=== PATIENT | male | born 1985 | race Caucasian/White ===

== ENCOUNTER 2017-08-14 23:11 | Emergency (ER) | payer SELFPAY ==
[~2017-08-14 23:11] MED LIST: Propofol 200 MG/20 ML SDV ONE; Rocuronium 50 MG/5 ML Vial ONE; Succinylcholine 200 MG/10 ML MDV ONE
[2017-08-14] MEDS ORDERED: Ondansetron 4 MG/2 ML SDV IVPUSH ONE (23:28)
[2017-08-14] MEDS ORDERED: Sodium Chloride 0.9% 1,000 ML IV SCH (23:30)
--- NOTE | 2017-08-14 23:41 | EDM.PDOC ---
ED HPI GENERAL MEDICAL PROBLEM - General Chief Complaint: Drug or Alcohol Abuse Stated Complaint: [facility] Time Seen by Provider: 08/14/17 23:12 Source of Information: Reports: EMS, Police History Limitations: Reports: Altered Mental Status - History of Present Illness INITIAL COMMENTS - FREE TEXT/NARRATIVE: This is a 31-year-old male. Apparently he was talking to his and family in [place] stating that he was depressed and they lost contact with him but were able to find him by locating his Ipad. When the arrived he was parked on the side of a road near [place] and he was unresponsive. The ambulance arrived and he was still unresponsive they did give him some Narcan because his respiratory rate was low but it didn't seem to help so they bagged the patient and he started breathing more normally so they put him on oxygen and transported him to the emergency room. When he arrived he semi-responsive. He has minimal response to verbal stimuli by muttering and he is essentially lethargic and sleeping. When the arrived she had talked to the family and they indicate that he has a long history of depression and possibly a history of overdosing. He has a whole bag of medications. His medications include Subutex 8 mg it looks like he is only taking half of a tablet from the prescription that he got on 08/13/2017, trazodone which he got filled on 08/10/2017 and 8 tablets are gone he is on several other medications including injectable testosterone and anabolic steroids as well as a anti- estrogen, Anastrozole. He is also on Brexpiprazole for depression. Finasteride for BPH. Gabapentin. He also has various supplements for body building that I' m not able to identify. We were able to identify Celebrex as well as minocycline capsules. We're assuming at this time that he took an overdose of medications as well as drinking alcohol. We are not certain whether this is a suicide gesture or attempt or just an accidental overdose. The patient is not able to add to this history. I spoke to Rekha his in [place] and she indicates he has been committed at least 2 times this month for suicidal ideation. The most recent he took muscle relaxers and alcohol as an overdose. She states he was released one week ago from the hospital and his psych doctor placed him on 3 new medications to try to stabilize his crisis. She does not know the name of the medications. When she was talking to him this evening he said to her that he wanted to and then apparently took the overdose of medications. That was when she called the police and they tracked him to his vehicle where he was found to be unresponsive. The ambulance stated that when they arrived he was found on the passenger side of the vehicle with cans of beer and he was breathing 4 times a minute and the ambulance bagged the patient and gave him 2 mg of Narcan IV with no response his pupils were pinpoint and slow to react when he arrived to the ER he is still obtunded and does not respond to verbal stimuli and he drifts off to sleep. He is maintaining his airway without difficulty. He's had no nausea and vomiting or gagging. 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: Reports: Other (see below) Other 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: narcan - Related Data Allergies Allergy/AdvReac Type Severity Reaction Status Date / Time Unable to Assess Allergy Unverified 08/14/17 23:26 Home Meds: Home Meds Anastrozole [Arimidex] 1 mg PO ASDIRECTED 08/15/17 [History] Brexpiprazole [Rexulti] 1 mg PO 08/15/17 [History] Buprenorphine HCl [Buprenorphine] 4 mg SL TID 08/15/17 [History] Finasteride 5 mg PO DAILY 08/15/17 [History] Testosterone Cypionate [Testone Cik] 250 mg IM 08/15/17 [History] traZODone HCl [Trazodone HCl] 50 mg PO BEDTIME PRN 08/15/17 [History] Past Medical History Other HEENT History: unable to verify past medical history at this time due to pt not verbally responding Social & Family History - Tobacco Use Smoking Status *Q: Unknown Ever Smoked - Recreational Drug Use Other Recreational Drug Type: unsure of any strret drug use ED ROS GENERAL - Review of Systems Review Of Systems: Unable To Obtain (The patient is verbally unresponsive at this time) - Physical Exam Exam: See Below Exam Limited By: Altered Mental Status General Appearance: Lethargic, Obtunded, Other (GCS is 3 at this time.) Eye Exam: Bilateral Eye: Normal Inspection, PERRL (Mild pin point pupils) Ears: Normal External Exam Nose: Normal Inspection Throat/Mouth: Normal Lips, No Airway Compromise Head Exam: Normocephalic Neck: Normal Inspection Respiratory/Chest: No Respiratory Distress, Lungs Clear, Normal Breath Sounds Cardiovascular: Regular Rate, Rhythm, No Murmur GI/Abdominal: Soft, Other (Patient does not arouse with palpation of his abdomen ) Neuro Exam (Abbreviated): Confused, Slow to Respond, Unresponsive Back Exam: Normal Inspection Extremities: Normal Inspection, Other (There is no evidence of any track arguello on his arms legs or toes or feet.) Psychiatric: Other (Essentially unresponsive though will respond to verbal stimuli) Skin Exam: Warm, Dry Course - Vital Signs Last Recorded V/S: Last Vital Signs Temp 98.1 F 08/14/17 23:18 Pulse 100 08/14/17 23:18 Resp 19 08/14/17 23:18 BP 109/63 08/14/17 23:18 Pulse Ox 95 08/14/17 23:18 - Orders/Labs/Meds Orders: Active Orders 24 hr Category Date Time Status EKG 12 Lead [EKG Documentation Completion] [RC] STAT Care 08/15/17 00:11 Active RT Ventilator, Adult [RC] ASDIRECTED Care 08/15/17 01:35 Active Chest 1V-Tube Placement Chk NC [CR] Stat Exams 08/15/17 01:38 Taken DRUG SCREEN, URINE [URCHEM] Stat Lab 08/15/17 00:10 Ordered Desired Level of Sedation (RASS) [AST] CONTINUOUS Oth 08/15/17 01:42 Ordered Labs: Laboratory Tests 08/14/17 08/14/17 08/14/17 Range/Units 23:40 23:40 23:40 WBC 8.64 (4.23-9.07) K/mm3 RBC 5.55 (4.63-6.08) M/mm3 Hgb 16.5 (13.7-17.5) gm/L Hct 49.9 (40.1-51.0) % MCV 89.9 (79.0-92.2) fl MCH 29.7 (25.7-32.2) pg MCHC 33.1 (32.2-35.5) g/dl RDW Std Deviation 44.7 H (35.1-43.9) fL Plt Count 262 (163-337) K/mm3 MPV 8.7 L (9.4-12.3) fl Neut % (Auto) 69.2 H (34.0-67.9) % Lymph % (Auto) 26.2 (21.8-53.1) % Bartholomew % (Auto) 3.6 L (5.3-12.2) % Eos % (Auto) 0.6 L (0.8-7.0) Baso % (Auto) 0.2 (0.1-1.2) % Neut # (Auto) 5.98 H (1.78-5.38) K/mm3 Lymph # (Auto) 2.26 (1.32-3.57) K/mm3 Bartholomew # (Auto) 0.31 (0.30-0.82) K/mm3 Eos # (Auto) 0.05 (0.04-0.54) K/mm3 Baso # (Auto) 0.02 (0.01-0.08) K/mm3 Puncture Site ABG pH (7.35-7.45) ABG pCO2 (35.0-45.0) mmHg ABG pO2 (80.0-100.0) mmHg ABG HCO3 (22.0-26.0) meq/L ABG O2 Saturation (96.0-97.0) % ABG Base Excess (-2-2.0) A-a Gradient mmHg O2 Delivery Device FiO2 (21.00-100.00) % Tidal Volume cc PEEP cmH20 Sodium 140 (136-145) mEq/L Potassium 3.9 (3.5-5.1) mEq/L Chloride 104 (98-107) mEq/L Carbon Dioxide 27 (21-32) mEq/L Anion Gap 12.9 (5-15) BUN 16 (7-18) mg/dL Creatinine 1.2 (0.7-1.3) mg/dL Est Cr Clr Drug Dosing 87.88 mL/min Estimated GFR (MDRD) > 60 (>60) mL/min BUN/Creatinine Ratio 13.3 L (14-18) Glucose 118 H (74-106) mg/dL Calcium 8.2 L (8.5-10.1) mg/dL Total Bilirubin 0.2 (0.2-1.0) mg/dL AST 27 (15-37) U/L ALT 52 (16-63) U/L Alkaline Phosphatase 51 (46-116) U/L Total Protein 7.1 (6.4-8.2) g/dl Albumin 4.0 (3.4-5.0) g/dl Globulin 3.1 gm/dL Albumin/Globulin Ratio 1.3 (1-2) Salicylates 0.7 L (2.8-20) mg/dL Urine Opiates Screen (NEGATIVE) Ur Buprenorphine Scrn (NEGATIVE) Ur Oxycodone Screen (NEGATIVE) Urine Methadone Screen (NEGATIVE) Ur Propoxyphene Screen (NEGATIVE) Acetaminophen 0 L (10-30) ug/mL Ur Barbiturates Screen (NEGATIVE) Ur Tricyclics Screen (NEGATIVE) Ur Phencyclidine Scrn (NEGATIVE) Ur Amphetamine Screen (NEGATIVE) U Methamphetamines Scrn (NEGATIVE) U Benzodiazepines Scrn (NEGATIVE) U Cocaine Metab Screen (NEGATIVE) U Marijuana (THC) Screen (NEGATIVE) Ethyl Alcohol 0.21 (0.00) gm% 08/15/17 08/15/17 Range/Units 00:10 02:10 WBC (4.23-9.07) K/mm3 RBC (4.63-6.08) M/mm3 Hgb (13.7-17.5) gm/L Hct (40.1-51.0) % MCV (79.0-92.2) fl MCH (25.7-32.2) pg MCHC (32.2-35.5) g/dl RDW Std Deviation (35.1-43.9) fL Plt Count (163-337) K/mm3 MPV (9.4-12.3) fl Neut % (Auto) (34.0-67.9) % Lymph % (Auto) (21.8-53.1) % Bartholomew % (Auto) (5.3-12.2) % Eos % (Auto) (0.8-7.0) Baso % (Auto) (0.1-1.2) % Neut # (Auto) (1.78-5.38) K/mm3 Lymph # (Auto) (1.32-3.57) K/mm3 Bartholomew # (Auto) (0.30-0.82) K/mm3 Eos # (Auto) (0.04-0.54) K/mm3 Baso # (Auto) (0.01-0.08) K/mm3 Puncture Site Rt brachial ABG pH 7.29 L (7.35-7.45) ABG pCO2 47.1 H (35.0-45.0) mmHg ABG pO2 125.0 H (80.0-100.0) mmHg ABG HCO3 21.9 L (22.0-26.0) meq/L ABG O2 Saturation 98.3 H (96.0-97.0) % ABG Base Excess -4.6 L (-2-2.0) A-a Gradient 72 mmHg O2 Delivery Device Ventilator FiO2 40.00 (21.00-100.00) % Tidal Volume 500.0 cc PEEP 5.0 cmH20 Sodium (136-145) mEq/L Potassium (3.5-5.1) mEq/L Chloride (98-107) mEq/L Carbon Dioxide (21-32) mEq/L Anion Gap (5-15) BUN (7-18) mg/dL Creatinine (0.7-1.3) mg/dL Est Cr Clr Drug Dosing mL/min Estimated GFR (MDRD) (>60) mL/min BUN/Creatinine Ratio (14-18) Glucose (74-106) mg/dL Calcium (8.5-10.1) mg/dL Total Bilirubin (0.2-1.0) mg/dL AST (15-37) U/L ALT (16-63) U/L Alkaline Phosphatase (46-116) U/L Total Protein (6.4-8.2) g/dl Albumin (3.4-5.0) g/dl Globulin gm/dL Albumin/Globulin Ratio (1-2) Salicylates (2.8-20) mg/dL Urine Opiates Screen Negative (NEGATIVE) Ur Buprenorphine Scrn Presumptive positive H (NEGATIVE) Ur Oxycodone Screen Negative (NEGATIVE) Urine Methadone Screen Negative (NEGATIVE) Ur Propoxyphene Screen Negative (NEGATIVE) Acetaminophen (10-30) ug/mL Ur Barbiturates Screen Negative (NEGATIVE) Ur Tricyclics Screen Negative (NEGATIVE) Ur Phencyclidine Scrn Negative (NEGATIVE) Ur Amphetamine Screen Negative (NEGATIVE) U Methamphetamines Scrn Negative (NEGATIVE) U Benzodiazepines Scrn Negative (NEGATIVE) U Cocaine Metab Screen Negative (NEGATIVE) U Marijuana (THC) Screen Negative (NEGATIVE) Ethyl Alcohol (0.00) gm% Meds: Medications Discontinued Medications Generic Name Dose Route Start Last Admin Trade Name Freq PRN Reason Stop Dose Admin Sodium Chloride 1,000 mls @ 1,000 mls/hr 08/14/17 23:30 08/14/17 23:38 Normal Saline IV 1,000 mls/hr ASDIRECTED DEBO Administration Sodium Chloride 1,000 mls @ 500 mls/hr 08/15/17 00:41 08/15/17 00:46 Normal Saline IV 08/15/17 02:40 500 mls/hr .BOLUS ONE Administration Propofol Confirm 08/15/17 01:29 08/15/17 01:53 Diprivan 100 Ml Administered 08/15/17 01:30 Not Given Dose 100 mls @ as directed .ROUTE .STK-MED ONE Propofol 100 mls @ 2.994 mls/hr 08/15/17 01:45 08/15/17 01:45 Diprivan 100 Ml IV 20 mcg/kg/min TITRATE DEBO 11.975 mls/hr Administration Protocol 5 MCG/KG/MIN Ondansetron HCl 4 mg 08/14/17 23:28 08/14/17 23:39 Zofran IVPUSH 08/14/17 23:29 4 mg ONETIME ONE Administration - Re-Assessments/Exams Free Text/Narrative Re-Assessment/Exam: 08/15/17 01:09 Reassessment of the patient he appears to be more obtunded and he does not respond to verbal stimuli or sternal rub even a severe sternal rub. This time his GCS is 3 and I do not feel comfortable with this patient and his gag reflex. Therefore we will go ahead and intubate this patient and placed him on a ventilator until he can awaken enough to maintain his gag reflex and protect his airway adequately. 08/15/17 01:[address] Bocanegra at [facility] in [place] regarding the patient's history and status and intubation. He agrees to accept the patient in transport for further evaluation and treatment and will make him a direct admit to the ICU. I also cold the patient's in [place], Rekha, her phone number is , informing her of her 's condition and the intubation to protect his airway as well as the transfer of the patient to [facility] in [place]. She understands the situation. Once the patient was intubated with an 8.0 tube by the on-call MARBLE WORKER he was placed on a ventilator with a 500 mL tidal volume people 5 respiratory rate of 12 and FiO2 of 40%. His pulse ox is maintained at 98-100%. He is on a propofol drip at 20 mics per kilogram per minute. He has no NG tube at intermittent suction as well as a Mercado catheter was placed. The ambulance was called for the patient's transfer down to [facility] in [place]. 08/15/17 02:14 With suctioning the patient became somewhat restless. We provided rocuronium 100 mg IV and increased the propofol drip to 30 mcg/kg/m. 08/15/17 02:20 The ambulance services arrived to the ER to take the patient to [facility] for admission and further evaluation and treatment. 08/15/17 02:26 Blood gas showed a pH is 7.29 with a CO2 of 47 so we increased the rate from 12/ m to 14/m. The rest of the blood gas was appropriate. Departure - Departure Time of Disposition: 02:45 Disposition: DC/Tfer to Acute Hospital 02 Condition: Fair Clinical Impression: Suicidal ideation, Suicide attempt, Required emergent intubation, Airway intubation performed without difficulty Multiple drug overdose Qualifiers: Encounter type: initial encounter Injury intent: intentional self-harm Qualified Code(s): T50.902A - Poisoning by unspecified drugs, medicaments and biological substances, intentional self-harm, initial encounter Acute alcohol intoxication Qualifiers: Complication of substance-induced condition: uncomplicated Qualified Code(s): F10.929 - Alcohol use, unspecified with intoxication, unspecified Depression, major Qualifiers: Major depression recurrence: recurrent Active/Remission status: currently active Major depression episode severity: severe Psychotic features: without psychotic features Qualified Code(s): F33.2 - Major depressive disorder, recurrent severe without psychotic features - Discharge Information Referrals: PCP,Not In Area [Primary Care Provider] - Forms: ED Department Discharge Additional Instructions: Dr. Bocanegra at [facility] agrees to accept the patient in transfer as a direct admit to the ICU for further evaluation and treatment. ED Communication - ED Communication Date/Time Date: 08/15/17 Time Called: 01:35 - Discussed Case With (1) Discussed Case With (1): Admitting Provider Person/s Notified (1): Dr. Bocanegra (He agrees to accept the patient in transport) - My Orders Last 24 Hours: My Active Orders 08/15/17 00:10 DRUG SCREEN, URINE [URCHEM] Stat 08/15/17 00:11 EKG 12 Lead [EKG Documentation Completion] [RC] STAT 08/15/17 01:35 RT Ventilator, Adult [RC] ASDIRECTED 08/15/17 01:38 Chest 1V-Tube Placement Chk NC [CR] Stat 08/15/17 01:42 Desired Level of Sedation (RASS) [AST] CONTINUOUS - Assessment/Plan Last 24 Hours: My Active Orders 08/15/17 00:10 DRUG SCREEN, URINE [URCHEM] Stat 08/15/17 00:11 EKG 12 Lead [EKG Documentation Completion] [RC] STAT 08/15/17 01:35 RT Ventilator, Adult [RC] ASDIRECTED 08/15/17 01:38 Chest 1V-Tube Placement Chk NC [CR] Stat 08/15/17 01:42 Desired Level of Sedation (RASS) [AST] CONTINUOUS
[2017-08-15 00:16] LABS: ACETAMINOPHEN 0 ug/mL (10-30)
[2017-08-15] MEDS ORDERED: Sodium Chloride 0.9% 1,000 ML IV ONE (00:41)
--- NOTE | 2017-08-15 01:52 | PCM.SN ---
- Free Text/Narrative Note: 08/15/17 [id number] Was called to ER to intubate this 31 year old male. Patient in Trauma 2. Breathing spontaneously, but unresponsive. Preoxygenated with 100 % O2 via ambu. Sat 100% Vitals stable. Succinylcholine 100 mg IV given followed by a flush along with cricoid pressure. Intubated with 3.0 MAC- 8.0 ETT. Secured by RT Erum. Positive color change and equal and bilateral breath sounds on auscultation. Ambu 100% O2 until on vent per Erum RT. Chest Xray read per Dr. Ortega NG passed to 65 without difficulty and had brownish liquid returns. Secured by nurse. Vitals stable. Cy
--- NOTE | 2017-08-17 08:23 | CR ---
Chest: Portable view of the chest was obtained. Comparison: No prior exam. Tip of endotracheal tube lies at the level of the clavicles. Nasogastric tube lies within the stomach fundus. Slight areas of atelectasis are seen within the right lung base. Lungs otherwise are clear. Bony structures are grossly intact. Impression: 1. Satisfactory position of nasogastric tube and endotracheal tube. 2. Mild right basilar atelectasis. Diagnostic code #3
== END 2017-08-15 02:48 ==
LOC: JD.ED 23:11
DX: T40.4X2A Poisoning by other synthetic narcotics, intentional self-harm, initial encounter (principal); T43.212A Poisoning by selective serotonin and norepinephrine reuptake inhibitors, intentional self-harm, initial encounter; T38 Poisoning by, adverse effect of and underdosing of hormones and their synthetic substitutes and antagonists, not elsewhere classified; F33.2 Major depressive disorder, recurrent severe without psychotic features; F10.129 Alcohol abuse with intoxication, unspecified; Y90.0 Blood alcohol level of less than 20 mg/100 ml
CPT/HCPCS: 31500; 36415; 36600; 51702; 80053; 80306; 82803; 85025; 93005; 96361; 96365; 96375; 99285; G0480; J0330; J2405; J7040; J2704; J3490